=== PATIENT | female | born 1995 | race Caucasian/White ===

== ENCOUNTER 2021-12-03 16:15 | Emergency (ER) | payer MEDICAID ==
[~2021-12-03 16:15] MED LIST: ACETAMINOPHEN325 MG PO; BACTRIM DS TAB1 EACH PO; CIPRO500 MG PO; FEOSOL325 MG PO; LEVAQUIN750 MG PO; MACROBID100 MG PO; MOTRIN600 MG PO; PHENERGAN25 M1 PO; PROBIOTIC1 EAC1 PO; ZOFRAN8 MG PO
== END 2021-12-03 18:00 | disposition home or self-care (01) ==
LOC: FER 16:15
DX: S96.912A Strain of unspecified muscle and tendon at ankle and foot level, left foot, initial encounter (principal); W18.42XA Slipping, tripping and stumbling without falling due to stepping into hole or opening, initial encounter; Y92.009 Unspecified place in unspecified non-institutional (private) residence as the place of occurrence of the external cause; Z28.310 Unvaccinated for COVID-19
CPT/HCPCS: 73610